=== PATIENT | female | born 1930 | race Caucasian/White ===

== ENCOUNTER 2017-06-23 19:45 | Inpatient (IN) | payer MEDICARE, OTHER ==
[~2017-06-23] VITALS: Ht 167.6 cm; Wt 63.6 kg
--- NOTE | ~2017-06-23 | DS ---
PATIENT:NELSON CONSTANTINO :[birth year] MEDICAL RECORD: [id number] DISCHARGE SUMMARY ADMISSION DATE: 06/23/17 DISCHARGE DATE: 06/25/17 DISCHARGE DIAGNOSES: 1. Sick sinus syndrome. 2. Status post pacemaker. 3. Symptomatic bradycardia. 4. Dysrhythmia -- premature ventricular contractions. HOSPITAL COURSE: Mrs. Constantino presents with symptomatic bradycardia, frequent PVCs, hypotension and syncope. She underwent permanent pacemaker placement and addition of sotalol. She had resolution of the PVCs. No further bradycardia, was discharged home with sotalol 80 b.i.d. We will follow up in [place] in 2 weeks for pacemaker check. TRANSINT:[id number] Voice Confirmation ID: [id number] DOCUMENT ID: [id number] YAIR HERRERA MD CC: [id number] DICTATION DATE: 06/25/17 1001 MASH GRINDER: 06/26/17 0146 DIS IN 06/25/17 [facility] [address] [id number]
--- NOTE | ~2017-06-23 | OP ---
PATIENT NAME: NELSON CONSTANTINO MEDICAL RECORD: [id number] :[birth year] LOCATION:[facility] D.2118 ADMISSION DATE:06/23/17 SURGEON: KAYLI TAYLOR MD DATE OF OPERATION: 06/24/2017 SURGEON: Kayli Taylor MD. ANESTHESIA: General, Dr. Funez. OPERATION PERFORMED: Insertion of dual chamber pacing system. PREOPERATIVE DIAGNOSES: Sick sinus syndrome, bradycardia and syncope. POSTOPERATIVE DIAGNOSES: Sick sinus syndrome, bradycardia and syncope. INDICATION FOR OPERATION: Bradycardia and syncope. FINDINGS OF THE OPERATION: The pulse generator Medtronic Adapta ADDR01, serial number [id number]. Atrial lead is a Medtronic model number 4574-45, serial number [id number]. Ventricular lead is a Medtronic model number 4074-52, serial number [id number]. LEAD ANALYSIS: Atrial lead threshold 0.3 volts, current lead threshold 0.3 milliamps, resistance 760 ohms. P-wave 3.3, slew rate 1.0. Ventricular lead threshold 0.3 volts, current lead threshold 0.2 milliamps, resistance 1361 ohms, R-wave 15.4, slew rate 4.0. ESTIMATED BLOOD LOSS: Less than 5 cc. DESCRIPTION OF PROCEDURE: After informed consent, adequate preoperative medication evaluation, the patient was brought to the operating room, placed on the table in the supine position. After induction of general anesthesia and application of appropriate monitoring devices, the left chest was prepped and draped in a sterile field, utilizing Betadine scrub, alcohol, and Betadine solution. A Betadine-impregnated drape was also used. A 1% lidocaine was infiltrated in the left subclavicular space. Incision was made and dissection carried down the fascia. Hemostasis maintained with electrocautery. The pacemaker pocket was formed. Subclavian vein was cannulated with introducers, leads placed in the heart. The above electrophysiologic study was done. They were felt to be in good position. Leads were secured. The leads were then connected to the pulse generator and pacemaker placed in the pocket. Pacemaker fired, captured and sensed appropriately. Pocket was irrigated. Instrument count and sponge count were correct times 2. Pocket was closed in layers utilizing 3-0 Vicryl on deep subcutaneous tissue and 5-0 subcuticular Monocryl on the skin. Sterile dressings were applied. The patient tolerated the procedure well and transferred to postanesthesia recovery in satisfactory condition. TRANSINT:[id number] Voice Confirmation ID: [id number] DOCUMENT ID: [id number] OPERATIVE REPORT [id number] NELSON CONSTANTINO EDWARD MD CC: [id number] DICTATION DATE: 06/24/171558 ASSISTANT CITY ATTORNEY: 06/24/172237 ADM IN [id number] [place] [address]
[2017-06-23 20:00] VITALS: BP 153/84
--- NOTE | 2017-06-23 21:14 | NUR ---
ARRIVED TO FLOOR VIA STRETCHER FROM EMS. ORIENTED TO UNIT AND PLACED ON TELEMETRY 68 SR. NO NEEDS AT THIS TIME, RIGHT AC SALINE LOCKED. CALL LIGHT IN REACH. WILL CONTINUE TO MONITOR. SEE NURSE ASSESSMENT.
--- NOTE | 2017-06-23 21:59 | NUR ---
DR. HERRERA PAGED FOR FURTHER ORDERS, AWAITING CALL BACK.
[2017-06-23 22:41] VITALS: BP 153/84; Ht 167.6 cm; Wt 63.6 kg
[2017-06-23] MEDS ORDERED: ZOCOR40 MG PO (22:53)
[2017-06-23] MEDS ORDERED: SYNTHROID100 MCG PO (22:53)
[2017-06-23] MEDS ORDERED: BAYER CHEWABLE81 MG PO (22:53)
--- NOTE | 2017-06-24 01:08 | NUR ---
CALL LIGHT IN REACH. WILL CONTINUE TO MONITOR.
[2017-06-24 01:15] VITALS: BP 135/75
[2017-06-24 05:11] VITALS: BP 123/78
[2017-06-24 08:33] VITALS: BP 133/90
[2017-06-24 10:39] LABS: HEMATOCRIT 45.5 % (36.0-48.0); MCH 29.7 pg (26.0-34.0); MCV 90.1 fL (80.0-100.0); MEAN PLATELET VOLUME 10.6 fL (7.4-10.4); RBC 5.05 10x6/uL (4.00-5.40); RDW 13.4 % (11.5-14.5); WBC 6.9 10x3/uL (4.8-10.8)
[2017-06-24 10:52] LABS: APTT 26.9 SECONDS (22.8-39.4)
[2017-06-24 10:54] LABS: ANION GAP 12.4 mmol/L (8-16); CALCIUM 9.3 mg/dL (8.5-10.1); CARBON DIOXIDE 28.8 mmol/L (21.0-32.0); CREATININE - SERUM 0.8 mg/dL (0.6-1.3); POTASSIUM - SERUM 4.2 mmol/L (3.5-5.1)
--- NOTE | 2017-06-24 11:36 | NUR ---
ALEX BOYD ON BILATERAL LE
[2017-06-24 12:01] VITALS: BP 153/75
--- NOTE | 2017-06-24 14:02 | NUR ---
UP TO BR. TO VOID. WANTING FOR PACEMAKER PLACEMENT. MONITOR SHOWS SR @ RATE OF 80 WITH PVCS. WILL CONTINUE TO MONITOR.
--- NOTE | 2017-06-24 14:22 | NUR ---
PRE-OP MEDS GIVEN.
--- NOTE | 2017-06-24 16:59 | NUR ---
CALLED DR ALFREDO REGARDING HEART RATE OF 38-40BPM PALPATED. DR ALFREDO WANTS US TO CONSULT CARDIOLOGY.
--- NOTE | 2017-06-24 17:03 | NUR ---
CONSULTED DR YAIR HERRERA, AGRICULTURE SCIENCE TEACHER. DR HERRERA ORDERED 80MG SOTOLOL BID.
--- NOTE | 2017-06-24 17:06 | NUR ---
CONSULTED ANESTHESIA REGARDING DECREASED HEART RATE OF 40BPM. DR LAGUNA RECOMMENDED ME TO CONSULT DR. ALFREDO. NO FURTHER ORDERS PER DR LAGUNA. WILL CONTINUE TO MONITOR.
[2017-06-24 17:27] VITALS: BP 176/97
--- NOTE | 2017-06-24 17:30 | NUR ---
RECIVED FROM RR PER BED. LT ARM SLING NOTED. LT CHEST DRSG.C/D
--- NOTE | 2017-06-24 17:51 | NUR ---
WITHOUT CHANGES OR DISTRESS NOTED AT THIS TIME. DENIES NEEDS.
[2017-06-24 19:00] VITALS: BP 150/86
--- NOTE | 2017-06-24 19:36 | NUR ---
RESUMED CARE OF PT, LYING IN BED RESPIRATIONS EVEN AND UNLABORED ON ROOM AIR. LEFT CHEST INCISION C/D/I. US TECH AT BEDSIDE. RIGHT AC SALINE LOCKED. PAIN NOTED TO INCISION SITE. CALL LIGHT IN REACH. WILL CONTINUE TO MONITOR. SEE NURSE ASSESSMENT.
[2017-06-25] VITALS: BP 132/81
[2017-06-25 04:00] VITALS: BP 130/74
[2017-06-25 08:00] VITALS: BP 125/70
--- NOTE | 2017-06-25 08:06 | NUR ---
ASSESSMENT DONE. DENIES NEEDS.
--- NOTE | 2017-06-25 09:59 | HP ---
PATIENT: NELSON CONSTANTINO MEDICAL RECORD: [id number] ACCOUNT: [id number] LOCATION:[address] : [birth year] ADMISSION DATE: 06/23/17 HISTORY AND PHYSICAL EXAMINATION DIAGNOSES: 1. Symptomatic bradycardia. 2. Premature ventricular contractions, bigeminy. HISTORY OF PRESENT ILLNESS: Mrs. Constantino presents to [facility] with syncope. She was found to be with frequent PVCs and bigeminy, transmitted pulse in the 20s with hypotension. She has been told in the past that she has PVCs. She had a cardiac catheterization approximately 3 years ago. This was with no significant coronary artery disease. She has not been treated for the PVCs as she has underlying bradycardia as well. This is dramatically worsened in the past 6 months. She has frequent episodes of passing out, frequent falls from this. PHYSICAL EXAMINATION: GENERAL APPEARANCE: Well-nourished, well-developed, appears stated age. Level of distress, comfortable. PSYCHIATRIC: Mental status, alert, normal affect. Orientation, oriented to time, place and person. EYES: Lids and conjunctiva, noninjected. No discharge, no pallor. ENT: Lips, teeth, gums, normal dentition. Oropharynx, no cyanosis, no pallor. NECK: Carotid arteries, bilateral normal upstroke, no bruits, no thrills. JUGULAR VEINS: No jugular venous pressure or distention. CERVICAL LYMPH NODES: Nontender, nonenlarged. THYROID: Not enlarged. Nontender. No nodules. LUNGS: Respiratory effort, unlabored. CHEST: Normal curvature. No thoracic deformity. No chest wall tenderness. Percussion, resonant. Auscultation, clear. No wheezes, no rales, no rhonchi. CARDIOVASCULAR: Precordial exam, nondisplaced. No heaves or pericardial thrills. Rate and rhythm, regular. Heart sounds, normal S1, normal S2. No S3, no gallop, no rub. Systolic murmur, not heard. Diastolic murmur, not heard. EXTREMITIES: No cyanosis, no edema. Peripheral pulses, full and equal in all extremities, except as noted. No bruits appreciated. ABDOMEN: Soft, nondistended. Normal aorta. No bruit. Nontender. No masses. Liver, nontender, no hepatomegaly. Spleen, nontender, no splenomegaly. MUSCULOSKELETAL: No joint tenderness. No joint swelling. No erythema. NEUROLOGICAL: Normal gait, normal strength, normal tone. SKIN: Warm and dry. OVERALL IMPRESSION: Frequent premature ventricular contractions with underlying bradycardia. She clearly will need pharmacologic treatment for the PVCs, but all this will make her more bradycardic. We will evaluate her for permanent pacemaker placement after the permanent pacemaker, we would start pharmacotherapy for the bigeminy and premature ventricular contractions. TRANSINT:[id number] Voice Confirmation ID: [id number] DOCUMENT ID: [id number] HISTORY AND PHYSICAL [id number] NELSON CONSTANTINO, YAIR COPE at 0959 CC: [id number] DICTATION DATE: 06/24/17 0839 COUNTY HEALTH OFFICER: 06/24/17 0848 ADM IN [id number] [place] [address]
[2017-06-25] MEDS ORDERED: BETAPACE 80 MG80 MG PO (10:25)
--- NOTE | 2017-06-25 11:16 | NUR ---
SITTING ON BEDSIDE GETTING DRESSED. MONITOR SHOWS SR 67 WITH [address] AV BLOCK. WAITING FOR DISCHARGE INSTRUCTIONS
--- NOTE | 2017-06-25 11:17 | NUR ---
DC AND RX GIVEN TO PT
--- NOTE | 2017-06-25 16:51 | NUR ---
Patient Name: NELSON CONSTANTINO Admission Status: Elective Accout number: [id number] Admission Date: 06-23-2017 : 1930 Admission Diagnosis:SICK SINUS SYNDROME Attending: SHARON HERRERA Current LOS: 2 Anticipated DC Date: 06-25-2017 Planned Disposition: Home Primary Insurance: MEDICARE A & B LATE ENTRY: Discharge Planning Comments: * Is the patient Alert and Oriented? Yes 0 * How many steps to enter\exit or inside your home? 9 0 * PCP [facility]PER[facility] 0 * Pharmacy [facility] IN [place] 0 * Preadmission Environment Home Alone 0 * ADLs Independent 0 * Equipment Bedside Commode 0 * Other Equipment NO MEDICAL EQUIPMENT PROVIDER PREFERENCE 0 * List name and contact numbers for known caregivers / representatives who currently or will assist patient after discharge: SEEMA CORNELIUS, FRIEND, 0 * Community resources currently utilized None 0 * Please name any agencies selected above. NONE 0 * Additional services required to return to the preadmission environment? No 0 * Can the patient safely return to the preadmission environment? Yes 0 * Has this patient been hospitalized within the prior 30 days at any hospital? No 0 CM MET WITH PT IN ROOM TO DISCUSS DISCHARGE PLANNING AND NEEDS. PT REPORTS LIVING AT HOME INDEPENDENTLY AND ALONE. PT HAS BEDSIDE COMMODE THAT SHE DOES NOT USE WITH NO MEDICAL EQUIPMENT PROVIDER PREFERENCE AND NO OUTSIDE SERVICES ASSISTING IN THE HOME. CM DISCUSSED AVAILABILITY OF HOME HEALTH, REHAB SERVICES AND MEDICAL EQUIPMENT. PT DENIES DISCHARGE NEEDS, REPORTS HER FRIEND IS HERE TO PICK HER UP FOR DISCHARGE HOME TODAY. TRIAL LAWYER NOTIFIED. Mechanical Inspector: Nelson Baron
== END 2017-06-25 12:04 | disposition home or self-care (01) | DRG 244 ==
LOC: D.M2 19:45
PROVIDERS: Internal Medicine Cardiovascular Disease; ADMIT Internal Medicine Interventional Cardiology
PROC: 02H63JZ Insertion of Pacemaker Lead into Right Atrium, Percutaneous Approach (ICD-10-PCS; 2017-06-24)
PROC: 02HK3JZ Insertion of Pacemaker Lead into Right Ventricle, Percutaneous Approach (ICD-10-PCS; 2017-06-24)
PROC: 0JH606Z Insertion of Pacemaker, Dual Chamber into Chest Subcutaneous Tissue and Fascia, Open Approach (ICD-10-PCS; principal; 2017-06-24 15:00)
DX: I49.5 Sick sinus syndrome (principal); R00.8 Other abnormalities of heart beat; I49.3 Ventricular premature depolarization; I10 Essential (primary) hypertension; Z86.718 Personal history of other venous thrombosis and embolism; K21.9 Gastro-esophageal reflux disease without esophagitis; Z86.73 Personal history of transient ischemic attack (TIA), and cerebral infarction without residual deficits; E03.9 Hypothyroidism, unspecified

== ENCOUNTER 2017-11-05 03:29 | Emergency (ER) | payer MEDICARE, OTHER ==
[2017-06-23 22:41] VITALS: BMI 22.6
[~2017-11-05 03:29] MED LIST: BAYER CHEWABLE81 MG PO; BETAPACE 80 MG80 MG PO; SYNTHROID100 MCG PO; ZOCOR40 MG PO
[2017-11-05 04:11] LABS: BASOPHILS 0.1 % (0-2); EOSINOPHILS 2.9 % (0-7); HEMATOCRIT 43.6 % (36.0-48.0); HEMOGLOBIN 14.5 g/dL (12-16); IMMATURE GRANULOCYTES 0.4 % (0-5); LYMPHOCYTES 37.4 % (15-50); MCHC 33.3 g/dL (31.0-37.0); MCV 90.3 fL (80.0-100.0); MEAN PLATELET VOLUME 10.6 fL (7.4-10.4); MONOCYTES 6.3 % (2-11); NEUTROPHILS 52.9 % (40-80); RBC 4.83 10x6/uL (4.00-5.40); RDW 12.9 % (11.5-14.5)
[2017-11-05 04:22] LABS: PLATELET COUNT 138 10x3/uL (130-400)
[2017-11-05 04:29] LABS: ALBUMIN 3.6 g/dL (3.4-5.0); ALKALINE PHOSPHATASE 119 U/L (46-116); ALT (SGPT) 32 U/L (10-68); BILIRUBIN - TOTAL 0.36 mg/dL (0.2-1.3); CALC OSMOLALITY 279 mosm/kg (275-300); CALCIUM 9.8 mg/dL (8.5-10.1); CARBON DIOXIDE 28.6 mmol/L (21.0-32.0); CHLORIDE - SERUM 103 mmol/L (98-107); CREATININE - SERUM 0.9 mg/dL (0.6-1.3); GLUCOSE 100 mg/dL (74-106); POTASSIUM - SERUM 4.2 mmol/L (3.5-5.1); PROTEIN - SERUM 7.1 g/dL (6.4-8.2); SODIUM 139 mmol/L (136-145); UREA NITROGEN 17 mg/dL (7-18); eGFR NON AFRICAN AMERICAN 62 mL/min (90-120)
[2017-11-05 04:30] LABS: APPEARANCE CLEAR (CLEAR); BILIRUBIN NEGATIVE (NEGATIVE); COLOR YELLOW (YELLOW); GLUCOSE NEGATIVE (NEGATIVE); KETONE NEGATIVE (NEGATIVE); NITRITE NEGATIVE (NEGATIVE); PROTEIN NEGATIVE (NEGATIVE); UROBILINOGEN NORMAL (NORMAL)
[2017-11-05 04:35] LABS: CREATINE KINASE 54 UL (21-215)
[2017-11-05 04:40] LABS: TROPONIN-I < 0.017 ng/mL (0.000-0.060)
== END 2017-11-05 07:50 ==
LOC: D.ER 03:29
PROVIDERS: Family Medicine
DX: H93.19 Tinnitus, unspecified ear (principal); I10 Essential (primary) hypertension; Z95.0 Presence of cardiac pacemaker